=== PATIENT | male | born 1955 | race Caucasian/White ===

== ENCOUNTER 2020-09-15 14:14 | Emergency (ER) | payer OTHER ==
[2020-09-15] MEDS ORDERED: Sodium Chloride 0.9% 10 ML Syringe FLUSH PRN (14:23)
--- NOTE | 2020-09-15 14:24 | EDM.PDOC ---
ED HPI GENERAL MEDICAL PROBLEM - General Chief Complaint: Cardiovascular Problem Stated Complaint: AFIB Time Seen by Provider: 09/15/20 14:24 Source of Information: Reports: Patient, Old Records History Limitations: Reports: No Limitations - History of Present Illness INITIAL COMMENTS - FREE TEXT/NARRATIVE: patient presented to the ER with a c/o palpitations and exertional dyspnea. Patient reports a h/o afib s/p ablation several years ago. On metoprolol, propafenone and Xarelto - who presented to the ER due to a c/o exertional dyspnea and palpitations over the last 24-48 hrs.. He checked his rhythm at home and found it in afib with a HR > 100 with exertion. He claims that he is usually in sinus rhythm not an afib. He has a h/o multiple cardioversions in the past - last one was 2 years ago due to afib w RVR. Reports that he is doing ok when resting, but once he started to move around he start to get winded. Denies cough, fever or CP. No dizziness. No nausea or emesis Reports that he has been taking all his meds as prescribed. His metal base blocker is Dr. Morrison - moisés Robertson/Mandi. Onset: Sudden Duration: Day(s): (1) Location: Reports: Chest - Related Data Allergies Allergy/AdvReac Type Severity Reaction Status Date / Time lisinopril Allergy Cough Verified 09/15/20 15:00 morphine Allergy Nausea Verified 09/15/20 15:00 Home Meds: Home Meds LORazepam [Ativan] 1 mg PO BEDTIME 03/09/18 [History] Losartan [Cozaar] 100 mg PO DAILY 03/09/18 [History] Metoprolol Succinate 150 mg PO DAILY 03/09/18 [History] Omeprazole 20 mg PO DAILY 03/09/18 [History] Propafenone HCl [Propafenone HCl ER] 325 mg PO BID 03/09/18 [History] Rivaroxaban [Xarelto] 20 mg PO DAILY 03/09/18 [History] allopurinoL [Zyloprim] 150 mg PO DAILY 03/09/18 [History] amLODIPine [Norvasc] 2.5 mg PO DAILY 03/09/18 [History] Pravastatin [Pravachol] 40 mg PO DAILY 09/15/20 [History] Past Medical History Cardiovascular History: Reports: Afib, Arrhythmia, Hypertension Respiratory History: Reports: Sleep Apnea Other Gastrointestinal History: Barrets Esophagus Endocrine/Metabolic History: Reports: None - Past Surgical History Cardiovascular Surgical History: Reports: Cardiac Ablation Other Musculoskeletal Surgeries/Procedures:: Neck cage r/t compressed vertebrae Social & Family History - Family History Family Medical History: No Pertinent Family History - Caffeine Use Caffeine Use: Reports: Coffee ED ROS GENERAL - Review of Systems Review Of Systems: See Below Constitutional: Reports: No Symptoms HEENT: Reports: No Symptoms Respiratory: Reports: Wheezing Cardiovascular: Reports: Dyspnea on Exertion, Palpitations GI/Abdominal: Reports: No Symptoms Musculoskeletal: Reports: No Symptoms Skin: Reports: No Symptoms Neurological: Reports: No Symptoms Psychiatric: Reports: No Symptoms ED EXAM, GENERAL - Physical Exam Exam: See Below Exam Limited By: No Limitations General Appearance: Alert, WD/WN, No Apparent Distress Eye Exam: Bilateral Eye: PERRL Neck: Normal Inspection Respiratory/Chest: No Respiratory Distress, Lungs Clear, Normal Breath Sounds Cardiovascular: Normal Peripheral Pulses, No Edema, Irregularly Irregular GI/Abdominal: Normal Bowel Sounds, Soft, Non-Tender Extremities: Normal Inspection, Normal Range of Motion Neurological: Alert, Oriented, No Motor/Sensory Deficits Psychiatric: Normal Affect, Normal Mood #1 Interpretation EKG Date: 09/15/20 Time: 15:00 Rhythm: A-Fib [place]: Normal P-Wave: Absent QRS: Normal ST-T: Normal QT: Normal Comparison: No Change Course - Vital Signs Last Recorded V/S: Last Vital Signs Temp 37.0 C 09/15/20 14:15 Pulse 75 09/15/20 15:32 Resp 16 09/15/20 14:15 BP 138/84 09/15/20 15:32 Pulse Ox 99 09/15/20 14:15 - Orders/Labs/Meds Orders: Active Orders 24 hr Category Date Time Status EKG Documentation Completion [RC] ASDIRECTED Care 09/15/20 14:24 Active CXR [Chest 1V Frontal] [CR] Stat Exams 09/15/20 14:47 Taken Sodium Chloride 0.9% [Normal Saline] 1,000 ml Med 09/15/20 14:45 Active IV ASDIRECTED Sodium Chloride 0.9% [Saline Flush] Med 09/15/20 14:23 Active 10 ml FLUSH ASDIRECTED PRN Saline Lock Insert [OM.PC] Routine Oth 09/15/20 14:23 Ordered Medication Orders Sodium Chloride (Normal Saline) 1,000 mls @ 999 mls/hr IV ASDIRECTED SONNY Last Admin: 09/15/20 14:52 Dose: 999 mls/hr Documented by: NATHALY Sodium Chloride (Sodium Chloride 0.9% 10 Ml Syringe) 10 ml FLUSH ASDIRECTED PRN PRN Reason: Keep Vein Open Labs: Laboratory Tests 09/15/20 09/15/20 09/15/20 Range/Units 14:35 14:35 14:36 WBC 5.9 (4.0-11.0) K/uL RBC 4.27 L (4.50-6.50) M/uL Hgb 13.6 (13.0-18.0) g/dL Hct 39.8 L (40.0-54.0) % MCV 93 (76-96) fL MCH 31.9 (27.0-32.0) pg MCHC 34.2 (31.0-35.0) g/dL RDW 14.1 (11.0-16.0) % Plt Count 275 (150-400) K/uL MPV 9.6 (6.0-10.0) fL D-Dimer, Quantitative 415 H (0-400) ng/mL Sodium (136-145) mmol/L Potassium (3.5-5.1) mmol/L Chloride (98-107) mmol/L Carbon Dioxide (21.0-32.0) mmol/L Anion Gap (5.0-15.0) mmol/L BUN (8-26) mg/dL Creatinine (0.70-1.30) mg/dL Est Cr Clr Drug Dosing Estimated GFR (MDRD) (>60) MLS/MIN BUN/Creatinine Ratio (6-25) Glucose (74-100) mg/dL Calcium (8.5-10.1) mg/dL Phosphorus (2.5-4.9) mg/dL Magnesium (1.8-2.4) mg/dL Troponin I (0.000-0.060) ng/mL B-Natriuretic Peptide 1202 H (0-125) pg/mL SARS CoV-2 RNA Rapid YUDITH 09/15/20 09/15/20 Range/Units 14:36 15:35 WBC (4.0-11.0) K/uL RBC (4.50-6.50) M/uL Hgb (13.0-18.0) g/dL Hct (40.0-54.0) % MCV (76-96) fL MCH (27.0-32.0) pg MCHC (31.0-35.0) g/dL RDW (11.0-16.0) % Plt Count (150-400) K/uL MPV (6.0-10.0) fL D-Dimer, Quantitative (0-400) ng/mL Sodium 140 (136-145) mmol/L Potassium 4.1 (3.5-5.1) mmol/L Chloride 103 (98-107) mmol/L Carbon Dioxide 24.3 (21.0-32.0) mmol/L Anion Gap 16.8 H (5.0-15.0) mmol/L BUN 26 (8-26) mg/dL Creatinine 0.95 (0.70-1.30) mg/dL Est Cr Clr Drug Dosing TNP Estimated GFR (MDRD) > 60 (>60) MLS/MIN BUN/Creatinine Ratio 27.4 H (6-25) Glucose 100 (74-100) mg/dL Calcium 9.0 (8.5-10.1) mg/dL Phosphorus 3.2 (2.5-4.9) mg/dL Magnesium 2.0 (1.8-2.4) mg/dL Troponin I < 0.017 (0.000-0.060) ng/mL B-Natriuretic Peptide (0-125) pg/mL SARS CoV-2 RNA Rapid YUDITH Negative Meds: Medications Generic Name Dose Route Start Last Admin Trade Name Freq PRN Reason Stop Dose Admin Sodium Chloride 1,000 mls @ 999 mls/hr 09/15/20 14:45 09/15/20 14:52 Normal Saline IV 999 mls/hr ASDIRECTED SONNY Administration Sodium Chloride 10 ml 09/15/20 14:23 Sodium Chloride 0.9% 10 Ml Syringe FLUSH ASDIRECTED PRN Keep Vein Open Discontinued Medications Generic Name Dose Route Start Last Admin Trade Name Freq PRN Reason Stop Dose Admin Metoprolol Tartrate 50 mg 09/15/20 15:27 09/15/20 15:32 Metoprolol Tartrate 50 Mg Tab PO 09/15/20 15:28 50 mg ONETIME ONE Administration Metoprolol Tartrate Confirm 09/15/20 15:42 Metoprolol Tartrate 50 Mg Tab Administered 09/15/20 15:43 Dose 50 mg .ROUTE .STK-MED ONE - Re-Assessments/Exams Free Text/Narrative Re-Assessment/Exam: EKG - afib w CVR. no acute ischemic changes and not RVR labs - no e/o infection. normal Trop and ddimer. normal electrolytes mg/Po4. K/Na. patient admitted that he drinks beers on a daily basis - had 3 beers yesterday. discussed the case with the Safety Assistant in [place] - Dr. James - who didn't think patient needs immediate cardioversion given stable vitals and being on therapy - but advised to switch BB from long acting to Lopressor 50mg TID. - give this a try for few days then f/u with his metal base blocker/PCP mid next week for a check up. COVID test is negative CXR no e/o infection Departure - Departure Time of Disposition: 15:53 Disposition: Home, Self-Care 01 Condition: Good Clinical Impression: Atrial fibrillation with controlled ventricular rate, Palpitations Referrals: PCP,None [Primary Care Provider] - Forms: ED Department Discharge Sepsis Event Note (ED) - Focused Exam Vital Signs: Vital Signs Temp Pulse Pulse Resp BP BP Pulse Ox 09/15/20 15:32 75 138/84 09/15/20 14:15 37.0 C 79 16 131/86 99 - Problem List & Annotations (1) Atrial fibrillation with controlled ventricular rate SNOMED Code(s): 60132741 Code(s): I48.91 - UNSPECIFIED ATRIAL FIBRILLATION Status: Acute Priority: Medium Current Visit: Yes (2) Palpitations SNOMED Code(s): 22496369 Code(s): R00.2 - PALPITATIONS Status: Acute Priority: Medium Current Visit: Yes - Problem List Review Problem List Initiated/Reviewed/Updated: Yes - My Orders Last 24 Hours: My Active Orders 09/15/20 14:23 Sodium Chloride 0.9% [Saline Flush] 10 ml FLUSH ASDIRECTED PRN Saline Lock Insert [OM.PC] Routine 09/15/20 14:24 EKG Documentation Completion [RC] ASDIRECTED 09/15/20 14:45 Sodium Chloride 0.9% [Normal Saline] 1,000 ml IV ASDIRECTED 09/15/20 14:47 CXR [Chest 1V Frontal] [CR] Stat - Assessment/Plan Last 24 Hours: My Active Orders 09/15/20 14:23 Sodium Chloride 0.9% [Saline Flush] 10 ml FLUSH ASDIRECTED PRN Saline Lock Insert [OM.PC] Routine 09/15/20 14:24 EKG Documentation Completion [RC] ASDIRECTED 09/15/20 14:45 Sodium Chloride 0.9% [Normal Saline] 1,000 ml IV ASDIRECTED 09/15/20 14:47 CXR [Chest 1V Frontal] [CR] Stat Plan: - start taking metoprolol 50mg every 8 hrs ( hold on the long acting dose ). - resume rest of home meds as before - follow up with your metal base blocker/PCP mid next week for a checkup - recommend to discuss of an Echo-cardiogram is indicated in your case - return to the ER if symptoms got worse or any concerns
[2020-09-15] MEDS: Metoprolol Tartrate 50 MG Tab ONE (14:52)
[2020-09-15] MEDS: Sodium Chloride 0.9% 1,000 ML IV SCH (14:52)
[2020-09-15] MEDS: Metoprolol Tartrate 50 MG Tab PO ONE (15:32)
--- NOTE | 2020-09-16 07:46 | CR ---
Date of Service: 09/15/20 Clinical Data: SOB AP CHEST: No priors. The patient has taken a poor inspiration. The heart is enlarged. There is calcification of the aortic arch. The lungs are clear. No pneumothorax. No pleural effusions. There are surgical changes in the lower cervical spine. [id number] [facility]
== END 2020-09-15 16:25 | disposition home or self-care (01) ==
LOC: LB.ED 14:14
DX: I48.91 Unspecified atrial fibrillation (principal); I10 Essential (primary) hypertension; Z79.01 Long term (current) use of anticoagulants; Z79.899 Other long term (current) drug therapy; Z20.822 Contact with and (suspected) exposure to COVID-19; Z88.5 Allergy status to narcotic agent; Z88.8 Allergy status to other drugs, medicaments and biological substances
CPT/HCPCS: 36415; 71045; 80048; 83735; 83880; 84100; 84484; 85027; 85379; 93005; 99283; 99285-25; A9270-GY; J7030; U0002